=== PATIENT | female | born 1990 | race Caucasian/White ===

== ENCOUNTER 2019-08-09 07:04 | Day surgery (SDC) | payer BC ==
[2019-08-09] VITALS (10 sets, daily range): BP systolic 91–123; BP diastolic 49–81
[~2019-08-09] VITALS: Ht 175.3 cm; Wt 59.0 kg
[~2019-08-09 07:04] MED LIST: ceFAZolin sod 1 GM in NS 55 ML IVPB ONE
[2019-08-09] MEDS ORDERED: SPIRONOLACTONE100 MG ORAL (07:49)
[2019-08-09] MEDS ORDERED: [UNRECOGNIZED DRUG - OTHER] TOPIC (07:49)
[2019-08-09] MEDS ORDERED: NEXPLANON68 MG SQ (07:49)
[2019-08-09] MEDS ORDERED: Lidocaine 1% 10mg/ml/EPI 0.01mg/ml 50ml INJ ONE (08:28)
[2019-08-09] MEDS ORDERED: Cocaine HCl 4% 4ml vial TOPIC ONE (08:28)
[2019-08-09] MEDS ORDERED: Oxymetazoline 0.05% Na Spray 30ml NASAL ONE (08:28)
[2019-08-09] MEDS ORDERED: Propofol 1,000mg/ 100ml btl IV ONE (09:00)
[2019-08-09] MEDS ORDERED: Lidocaine 1% MPF 10mg/ml 5ml ONE (09:06)
[2019-08-09] MEDS ORDERED: fentaNYL 100 mcg/2 mL IV ONE (09:06)
[2019-08-09] MEDS ORDERED: Midazolam 2mg/2ml Inj ONE ×2 (09:06→09:55)
[2019-08-09] MEDS ORDERED: Rocuronium Bromide 50mg/5ml Inj IV ONE (09:09)
--- NOTE | 2019-08-09 09:16 | Pre-Procedure Note/Attestation ---
Pre-Procedure Note/Attestation Complete Prior to Procedure Planned Procedure: not applicable Procedure Narrative: nasal obstruction unresponsive to medication Indications for Procedure Pre-Operative Diagnosis: septal deviation, bilateral hypertrophied inferior turbinates Attestation I attest that I discussed the nature of the procedure; its benefits; risks and complications; and alternatives (and the risks and benefits of such alternatives ), prior to the procedure, with the patient (or the patient's legal manufacturers service representative). I attest that, if there was a reasonable possibility of needing a blood transfusion, the patient (or the patient's legal manufacturers service representative) was given the [facility] standardized written summary, pursuant to the Tramaine Follett Blood Safety Act ([place] Health and Safety Code # 1645, as amended). I attest that I re-evaluated the patient just prior to the surgery and that there has been no change in the patient's H&P, except as documented below: Pato Sharma MD Aug 09, 2019 09:16
[2019-08-09] MEDS ORDERED: LR 1000ml ONE (09:30)
[2019-08-09] MEDS ORDERED: Sterile Water Irrig 1000ml IRRIG ONE (09:30)
[2019-08-09] MEDS ORDERED: NS Irrig 1000ml IRRIG ONE (09:47)
[2019-08-09] MEDS ORDERED: LR 1000ml 1,000 ML IVLG SCH (10:11)
--- NOTE | 2019-08-09 10:11 | Anethesia Preoperative Eval ---
Anesthesia Pre-op PMH/ROS General Date of Evaluation: Aug 09, 2019 Anesthesiologist: Phillip ASA Score: ASA 2 Mallampati Score Class I : Soft palate, uvula, fauces, pillars visible Class II: Soft palate, uvula, fauces visible Class III: Soft palate, base of uvula visible Class IV: Only hard plate visible Mallampati Classification: Class I Surgeon: Edith Diagnosis: deviated septum Surgical Procedure: septoplasty, smr, turbs Anesthesia History: none Family History: no anesthesia problems Allergies: Coded Allergies: ADHESIVE TAPE (Verified Allergy, Mild, redness, 08/09/19) Medications: see eMAR Patient NPO?: Yes NPO Date: Aug 08, 2019 NPO Time: 21:00 Past Medical History Cardiovascular: Denies: HTN, CAD, NC, valve dz, arrhythmia, other Pulmonary: Denies: asthma, COPD, JEAN, other Gastrointestinal/Genitourinary: Reports: GERD; Denies: CRI, ESRD, other Neurologic/Psychiatric: Denies: dementia, CVA, depression/anxiety, TIA, other Endocrine: Denies: DM, hypothyroidism, steroids, other HEENT: Denies: cataract (L), cataract (R), glaucoma, ALUTIIQ (L), ALUTIIQ (R), other Hematology/Immune: Denies: anemia, DVT, bleeding disorder, other Musculoskeletal/Integumentary: Denies: OA, RA, DJD, DDD, edema, other PSxH Narrative: bilateral hammertoe correction Anesthesia Pre-op Phys. Exam Physician Exam Last Vital Signs Date Time Temp Pulse Resp B/P (MAP) Pulse Ox O2 Delivery O2 Flow Rate FiO2 08/09/19 07:50 Room Air 08/09/19 07:45 97.1 78 18 112/68 100 Constitutional: NAD Cardiovascular: RRR Respiratory: CTA Airway Exam Mallampati Score: Class I MO: full ROM: full Teeth: intact Anesthesia Pre-op A/P Labs see chart Urine Test Test 08/09/19 07:20 Urine HCG, Qualitative Negative (NEGATIVE) Risk Assessment & Plan Assessment: ASA II Plan: GA Status Change Before Surgery: No Pre-Antibiotics Drug: ancef 1g Given Within 1 Hr of Incision: Yes Stefania Larsen MD Aug 09, 2019 10:11
[2019-08-09] MEDS ORDERED: Midazolam 2mg/2ml Inj IVP PRN (10:15)
[2019-08-09] MEDS ORDERED: Metoclopramide 10mg/2ml Inj IVP PRN (10:15)
[2019-08-09] MEDS ORDERED: Hydromorphone 0.5mg/0.5ml inj IVP PRN (10:15)
[2019-08-09] MEDS ORDERED: DiphenhydrAMINE 50mg/ml Inj IVP PRN (10:15)
[2019-08-09] MEDS ORDERED: fentaNYL 100 mcg/2 mL IV PRN (10:15)
[2019-08-09] MEDS ORDERED: Dexamethasone 4mg/ml vial ONE (12:43)
[2019-08-09] MEDS ORDERED: Lidocaine 1% Plain 30 ml INJ ONE (12:43)
[2019-08-09] MEDS ORDERED: Metoclopramide 10mg/2ml Inj ONE (12:43)
--- NOTE | 2019-08-09 13:28 | Immediate Post-Op Evaluation ---
Immediate Post-Op Evalulation Immediate Post-Op Evalulation Procedure: Septoplasty smr turbs Date of Evaluation: Aug 09, 2019 Time of Evaluation: 13:30 IV Fluids: 1.4L Blood Products: 0 Estimated Blood Loss: 15 Urinary Output: 0 Blood Pressure Systolic: 101 Blood Pressure Diastolic: 50 Pulse Rate: 94 Respiratory Rate: 16 O2 Sat by Pulse Oximetry: 99 Temperature (Fahrenheit): 97.9 Pain Score (1-10): 0 Nausea: No Vomiting: No Complications 0 Patient Status: awake, reacts, patent, none Hydration Status: adequate Drug: Ancef 1g Given Within 1 Hr of Incision: Yes Stefania Larsen MD Aug 09, 2019 13:28
--- NOTE | 2019-08-09 13:30 | Brief Operative Note ---
Immediate Post Operative Note Operative Note Pre-op Diagnosis: septal deviation, bilateral hypertrophied inferior turbinates Procedure: septal deviation, bilateral inferior turbinectomies with intramural coagulation , reconstruction of right internal nasal valve, and reconstruction of right external nasal valve Post-op Diagnosis: same as pre-op plus - rigth internal valve collapse, and right external valve collapse Surgeon: Pato Sharma M.D. Anesthesiologist: Phillip Clements Anesthesia: MAC Specimen: yes - septum Complications: none Condition: stable Fluids: ringers lactate Estimated Blood Loss: minimal Drains: none Packing: telfa Implant(s) used?: Yes - bank rib cartilage Pato Sharma MD Aug 09, 2019 13:30
--- NOTE | 2019-08-09 13:30 | 48 Hour Post Anesthesia Eval ---
Post Anesthesia Evaluation Procedure: Septoplasty smr turbs Date of Evaluation: Aug 09, 2019 Airway: patent Nausea: No Vomiting: No Hydration Status: adequate Cardiopulmonary Status: at baseline Mental Status/LOC: patient returned to baseline Post-Anesthesia Complications: 0 Follow-up care needed: ready to discharge Stefania Larsen MD Aug 09, 2019 13:30
--- NOTE | 2019-08-09 23:45 | Operative Note - Dictated ---
DATE OF OPERATION: 08/09/2019 SURGEON: Pato Sharma M.D. ANESTHESIOLOGIST: Stefania Diaz M.D. ANESTHESIA: MAC. PREOPERATIVE DIAGNOSES: 1. Septal deviation. 2. Bilateral hypertrophied inferior turbinates. POSTOPERATIVE DIAGNOSES: 1. Septal deviation. 2. Bilateral hypertrophied inferior turbinates. 3. Right internal valve collapse. 4. Right external valve collapse INDICATION FOR SURGERY: The patient is a 28-year-old female, who complains of right greater than left nasal airway obstruction, unresponsive to medication. Her examination reveals right greater than left nasal airway obstruction, which required surgical repair. The findings at surgery revealed very small nostrils with the right being smaller than the left and the columella being pushed to the right further narrowing the right nostril. The patient is noted to have a significant tension septum, which was narrowing both internal valves. Intranasally, the patient was found to have a severe right septal deviation curving to the right superiorly as well as inferiorly, contributing to the columella being pushed to the right and further compromising a very narrow right nostril. This combined with the patient's bilateral hypertrophied inferior turbinates, and collapsed right inferior upper lateral cartilage created a right greater than left nasal airway obstruction. DESCRIPTION OF PROCEDURE: The patient was brought to the operating room while premedicated and had received preoperative antibiotics. She was then placed supine position on the operating table. After the patient underwent satisfactory endotracheal intubation, she was given IV sedation. The nasal cavity was then sprayed with 0.25% Akshat-Synephrine. Sterile Q-tips saturated with Betadine were used to sterilize the intranasal cavity. Approximately 24 mL of 1% Xylocaine with 1:100,000 epinephrine were used to inject the nasal septal frameworks. Less than 200 mg of cocaine was used on intranasal packing. The patient was then prepped and draped in the usual sterile fashion. After a suitable period of vasoconstriction, the packing was removed. A #15 blade was used to make an incision between the upper and lower lateral cartilage, carried to the septal angle and then along the inferior aspect of the septum. Bilateral junction tunnels were accomplished and the upper lateral cartilages were from the septum. The tension septum was then taken down sharply. Re-examination still revealed there was a collapse of the right internal valve. The right inferior septal incision was then extended posteriorly and a right mucoperichondrial mucoperiosteal flap was then elevated. An incision was made between the cartilage and bony septum, and a left mucoperiosteal flap was elevated. That portion of overriding obstructing perpendicular plate of the ethmoid and vomer bone were incised in strips, from any attachments and removed from any field of operation. A mallet and chisel was then used to remove a large obstructing right maxillary crest spur. Re-examination still revealed the inferior aspect of the septum in an obstructed position, and this was extensively crosshatched and mobilized in a more midline position for breathing, maintaining good anterior and inferior support. Bilateral intramural coagulation of both inferior turbinates were then performed. An incision was made in the undersurface of both inferior turbinates and mucosa stripped the underlying bone. The inferior turbinates were then outfractured and a small piece of bone removed from the pocket. Re-examination now revealed the septum be in more midline position and the patient had a good nasal airway except for the collapse of the right internal and external valves. A # 15 blade was used to make vertical incisions, both inferior and superior to the area of collapse of the right inferior upper lateral cartilage. The incisions were extended down to the underlying cartilage. A transverse incision connected the vertical incisions. The entire flap was then rotated anteriorly and laterally and secured in place with interrupted sutures of 4-0 plain. A #12 blade was then used to make incision through the mucoperichondrium. The superior aspect of mucoperichondrial flap was then advanced anteriorly and sutured to the rotated flaps with interrupted sutures of 4-0 plain. Re-examination revealed that the very superior aspect of the septum had a hematoma developing. A #12 blade was then used to make an incision thru the mucoperiosteum to drain the hematoma and prevent re-occurrence postoperatively. Re-examination revealed the right nostril was obstructed by the columella. To alleviate the obsturction Betadine was used to sterilize the right side of the columella. Approximately 1 mL of 1% Xylocaine with 1:100,000 epinephrine was used to inject the inferior aspect of the columella. After a suitable period of vasoconstriction, a #15 blade was used to make a small incision just inferior to the lower lateral cartilage. A tunnel was created using Frazier scissors, which extended from just above the anterior nasal spine to the nasal tip. A piece of banked rib cartilage was cut to specifications to fill the columella pocket, and after being soaked in Betadine was then brought into the sterile field. The cartilage was placed in the columella and found to fit correctly. The cartilage strut mobilized the columella to the midline with the needed support. The area was rinsed with Betadine solution, then the incision was closed with interrupted sutures of 5-0 plain. Re-examination now revealed the patient to have a good bilateral nasal airway. All blood was suctioned from the nose and nasopharynx area. A 4-0 plain was used to close between the cartilage incision at the area previously crosshatched. A 4-0 plain was also used to close the inferior septal incision and splint the septum. Telfa coated with Betadine ointment was secured intranasally with a suture of 3-0 silk. A pressure dressing consisting of Steri-Strips, adhesive tape, and a cast were then secured in place and the procedure was terminated. The patient tolerated procedure well and left the operating room in satisfactory condition. ESTIMATED BLOOD LOSS: 40 mL. COUNTS: Sponge and needle counts were correct. Pato Sharma M.D. DR: JENY JOB#: [id number] CC: [email or web address]
== END 2019-08-09 16:20 | disposition home or self-care (01) ==
LOC: SUR 07:04
DX: J34.2 Deviated nasal septum (principal); J34.3 Hypertrophy of nasal turbinates; M95.0 Acquired deformity of nose; K21.9 Gastro-esophageal reflux disease without esophagitis; Z91.040 Latex allergy status
CPT/HCPCS: 30140; 30465; 30520; 81025; J0690; J1100; J1170; J2001; J2250; J2405; J2704; J2765; J3010; 94003; 94150